=== PATIENT | female | born 1990 | race African-American/Black ===

== ENCOUNTER 2018-06-23 20:08 | Emergency (ER) | payer OTHER ==
[~2018-06-23] VITALS: Ht 160 cm; Wt 38.6 kg
[2018-06-23 20:15] VITALS: BP 105/72
== END 2018-06-23 22:00 | disposition left against medical advice (07) ==
LOC: ER 20:08 → EDBD 20:08 → ER 22:00
DX: R11.2 Nausea with vomiting, unspecified (principal); Z53.21 Procedure and treatment not carried out due to patient leaving prior to being seen by health care provider